=== PATIENT | female | born 1990 | race Caucasian/White ===

== ENCOUNTER → 2016-12-15 | Outpatient (CLI) | payer OTHER ==
--- NOTE | 2016-12-15 19:45 | US ---
EXAMINATION TYPE: US OB >= 14 wk fetus DATE OF EXAM: 12/15/2016 4:47 PM COMPARISON: US on PACS CLINICAL HISTORY: O36.63X0 Large for Dates TECHNIQUE: Transabdominal (TA) GESTATIONAL AGE / DATING Physician Established: (35 weeks/5 days) EDC: 01/14/2017 Dates by LMP: (35 weeks/5 days) EDC: 01/14/2017 Dates by First Scan: not here Dates by Current Scan: (36 weeks/2 days) EDC: 01/10/2017 SURVEY IUP: Single PLACENTA: Fundal Posterior PREVIA: No Previa SHAYY: 13.0 cm Normal CERVICAL LENGTH (transabdominal: norm > 3.0cm): 4.0 cm BIOMETRY PRESENTATION: Vertex LIE: Longitudinal BPD: 9.0m 36weeks / 3 days HC: 32.2 36weeks / 3 days AC: 31.8 35weeks / 5 days FL: 7.1m 36weeks / 2 days ESTIMATED WEIGHT IN GRAMS: 2836ams ESTIMATED WEIGHT IN LBS/OZS: 6 lbs. 4 oz. WEIGHT PERCENTAGE BASED ON ESTABLISHED DATES: 59.7% HC/AC: 1.01 normal FL/AC: 22.28 normal HEART RATE: 129pm RHYTHM: Normal Findings: Viable IUP,36 weeks/2 days, EDC: 01/10/2017; [id number]; Sagittal and Transverse Spine, 4 chamber heart also imaged as recommended by prior US radiologist. Du e to age of fetus the extended limbs could not be imaged as > US screen size. anatomy assessment limited due to advanced gestational age. IMPRESSION: Viable 36 weeks 2 days with an EDC of 01/10/2017. Limited anatomy assessment due to advanced gestational age.
== END | disposition home or self-care (01) ==
LOC: RADUSWWP 16:03
PROVIDERS: ATTEND Obstetrics & Gynecology
DX: O36.63X0 Maternal care for excessive fetal growth, third trimester, not applicable or unspecified (principal); Z3A.36 36 weeks gestation of pregnancy
CPT/HCPCS: 76805

== ENCOUNTER 2017-01-11 01:08 | Inpatient (IN) | payer OTHER ==
[2017-01-11] MEDS ORDERED: METHYLERGONOVINE 0.2 MG/ML 1 ML AMP IM PRN (02:50)
[2017-01-11] MEDS ORDERED: OXYTOCIN 10 UNIT/ML 1 ML VIAL IM PRN (02:50)
[2017-01-11] MEDS ORDERED: TERBUTALINE 1 MG/ML VIAL SQ PRN (02:50)
[2017-01-11] MEDS ORDERED: CARBOPROST TROMETHAMINE 250 MCG/ML 1 ML AMP IM PRN (02:50)
[2017-01-11] MEDS ORDERED: LIDOCAINE 1% (PF) 10 MG/ML (30 ML SDV) SQ PRN (02:50)
[2017-01-11] MEDS ORDERED: LACTATED RINGERS 1,000 ML IV SCH (03:00)
[2017-01-11 03:01] VITALS: BMI 30.9
[2017-01-11 03:03] LABS: Basophils # (A) 0.1 k/uL (0-0.2); Basophils % (A) 1 %; CH 23.9; CHCM 31.5; Eosinophils # (A) 0.2 k/uL (0-0.7); Eosinophils % (A) 1 %; HCT 33.1 % (34.0-46.0); HDW 3.87; HGB 10.5 gm/dL (11.4-16.0); Hypochromasia Moderate; Luc % (Auto) 2; Lymphocytes % (A) 16 %; MCH 24.2 pg (25.0-35.0); MCHC 31.8 g/dL (31.0-37.0); MCV 76.1 fL (80.0-100.0); Mean Platelet Volume 8.8; Microcytosis Slight; Monocytes # (A) 0.6 k/uL (0-1.0); Monocytes % (A) 5 %; Neutrophils # (A) 9.5 k/uL (1.3-7.7); Neutrophils % (A) 75 %; Poikilocytosis Slight; RBC 4.34 m/uL (3.80-5.40); RDW 15.8 % (11.5-15.5); WBC 12.6 k/uL (3.8-10.6); WBC (Perox) 13.24
[2017-01-11] MEDS ORDERED: BUTORPHANOL 1 MG/ML 1 ML VIAL IV PRN (05:13)
--- NOTE | 2017-01-11 06:04 | P.HPOB ---
History of Present Illness H&P Date: 01/11/17 Chief Complaint: Contractions. The patient is a pleasant 25-year-old 2 para 1 female estimated date of confinement 01/14/2017 estimated gestational age 39-4/7 weeks who presented to labor and delivery last evening with complaints of contractions found to be in early labor. Patient transferred her care to [place] in approximately 27 weeks. Her is in [facility] and she moved back to [facility] due to family. Patient's care previous to her see [place] appeared to be uncomplicated. She's had normal anatomy ultrasounds. She has a history of a macrosomic infant without sequela I however this infant appears to be normal size. Review of Systems Constitutional: Denies chills, Denies fever Ears, nose, mouth and throat: Denies headache, Denies sore throat Cardiovascular: Denies chest pain, Denies shortness of breath Respiratory: Denies cough Gastrointestinal: Reports heartburn Genitourinary: Reports Menstruation: Reports amenorrhea Musculoskeletal: Denies myalgias Integumentary: Denies pruritus, Denies rash Neurological: Denies numbness, Denies weakness Psychiatric: Denies anxiety, Denies depression Endocrine: Denies fatigue, Denies weight change Past Medical History Past Medical History: No Reported History History of Any Multi-Drug Resistant Organisms: None Reported Additional Past Surgical History / Comment(s): wisdom teeth 2012 Past Anesthesia/Blood Transfusion Reactions: No Reported Reaction Past Psychological History: No Psychological Hx Reported Smoking Status: Never smoker Past Alcohol Use History: None Reported Past Drug Use History: None Reported - Past Family History Father Family Medical History: No Reported History Mother Family Medical History: No Reported History Medications and Allergies Home Medications Medication Instructions Recorded Confirmed Type No Known Home Medications [No 01/11/17 01/11/17 History Known Home Medications] Allergies Allergy/AdvReac Type Severity Reaction Status Date / Time No Known Allergies Allergy Verified 01/11/17 01:14 Exam - Vital Signs Vital signs: Vital Signs Temp Pulse Resp BP Pulse Ox 01/11/17 01:17 130/66 01/11/17 01:10 96.1 F L 93 18 140/68 98 Intake and Output 01/10/17 01/10/17 01/11/17 14:59 22:59 06:59 Other: Weight 87.09 kg Patient Weight 01/11/17 06:59 Weight 87.09 kg - OBG Physical Exam Abdomen: bowel sounds normal, no diffuse tenderness, no bruit present, no guarding noted, no hepatomegaly, no splenomegaly, no mass Vulva: both: normal Vagina: normal moisture, no discharge Cervix: Cervix is 4-5 cm dilated vertex presentation Cervix: no lesion, no discharge Uterus: enlarged (Fundal height is consistent with a term .) Adnexa: both: normal Anus/Rectum: no rectal mass, no hemorrhoids, heme negative Results blood work shows she is oh positive, rubella immune, RPR nonreactive, hepatitis B-, HIV nonreactive, Glucola was 129, ultrasounds have been normal. B strep was negative. Result Diagrams: 01/11/17 02:50 Abnormal Lab Results - Last 24 Hours (Table) 01/11/17 Range/Units 02:50 WBC 12.6 H (3.8-10.6) k/uL Hgb 10.5 L (11.4-16.0) gm/dL Hct 33.1 L (34.0-46.0) % MCV 76.1 L (80.0-100.0) fL MCH 24.2 L (25.0-35.0) pg RDW 15.8 H (11.5-15.5) % Neutrophils # 9.5 H (1.3-7.7) k/uL Assessment and Plan (1) Third trimester Narrative/Plan: This is a pleasant 25-year-old 2 para 1 female 39-4/7 weeks' gestation in early active labor. Plan is anticipate normal spontaneous vaginal delivery. Status: Acute (2) Normal labor Status: Acute
[2017-01-11] MEDS ORDERED: HYDROCORTISONE 2.5% RECTAL CREAM 30 GM TUBE RECTAL PRN (07:13)
[2017-01-11] MEDS ORDERED: diphenhydrAMINE 50 MG/ML 1 ML VIAL IVP PRN (07:13)
[2017-01-11] MEDS ORDERED: BISACODYL 10 MG SUPP RECTAL PRN (07:13)
[2017-01-11] MEDS ORDERED: LANOLIN CREAM 5 GM TUBE TOPICAL PRN (07:13)
[2017-01-11] MEDS ORDERED: ACETAMINOPHEN TAB 325 MG TAB PO PRN (07:13)
[2017-01-11] MEDS ORDERED: diphenhydrAMINE 25 MG CAP PO PRN (07:13)
[2017-01-11] MEDS ORDERED: IBUPROFEN 600 MG TAB PO PRN (07:13)
[2017-01-11] MEDS ORDERED: WITCH HAZEL 1 EACH MED..PAD TOPICAL PRN (07:13)
[2017-01-11] MEDS ORDERED: SIMETHICONE 80 MG CHEWABLE PO PRN (07:13)
[2017-01-11] MEDS ORDERED: Acetaminophen-Codeine 300-30mg TAB PO PRN ×2 (07:13)
[2017-01-11] MEDS ORDERED: ZOLPIDEM 5 MG TAB PO PRN (07:13)
[2017-01-11] MEDS ORDERED: BENZOCAINE/MENTHOL SPRAY 1 GM/SPRAY AEROSOL TOPICAL PRN (07:13)
--- NOTE | 2017-01-11 07:17 | P.PROBDLV ---
Vaginal Delivery Note - . Vaginal Delivery Note: Normal spontaneous vaginal delivery viable female infant Apgars 8 and 9 delivery time was 0648 hrs. Please see dictated H&P for intimate details of this patient's admission. Brief summary this is a pleasant 26-year-old 2 para 1 female 39-4/7 weeks gestation admitted last evening with complaints of contractions found to be 4 cm in active labor. Patient does receive 1 dose of intrapartum Stadol in labor progresses quickly. Patient gets to complete and at this time has artificial rupture membranes for clear fluid. As to pushes she pushes the head to the perineum. The posterior perineum was infiltrated with 1% lidocaine and a midline episiotomy is made. I then have controlled delivery of the 's head over the intact perineum. Mouth and nares are bulb suctioned. There is no evidence of a nuchal cord. With gentle downward traction we then have delivery the anterior and posterior shoulder and rest this infant's body. This is a vigorous viable female Apgars are 8 and 9 delivery time was 0648 hours. After delivery of the the umbilical cord is doubly clamped and cut and appears to be trivascular. The placenta is then spontaneously delivered intact. Estimated blood loss is 150 mL. Inspection of the perineum shows a second-degree laceration which is repaired with 3-0 Vicryl in the usual fashion. Excellent reapproximation is noted. Infant and mother are stable delivery room. All counts are correct 3. There are no complications.
[2017-01-11] MEDS: OXYTOCIN 30 UNITS/500 ML NS 30 UNIT in SALINE 1 500ML.BAG IV SCH ×2 (07:22→19:24)
[2017-01-11] MEDS: SENNOSIDES-DOCUSATE SODIUM 1 EACH TAB PO SCH ×2 (10:06→19:58)
--- NOTE | 2017-01-12 05:36 | P.PNOBGVD ---
Subjective - Subjective Patient reports: Reports appetite normal, Reports voiding normally, Reports pain well controlled, Reports ambulating normally : doing well Objective - Latest Vital Signs Latest vital signs: Vital Signs Temp Pulse Resp BP Pulse Ox 01/12/17 00:00 98.3 F 89 17 112/61 98 01/11/17 16:00 98.0 F 74 16 121/72 98 01/11/17 12:00 98.3 F 70 17 128/73 01/11/17 09:10 98.8 F 86 16 122/64 01/11/17 08:40 85 16 114/68 01/11/17 08:10 85 16 125/64 01/11/17 07:55 91 16 124/64 01/11/17 07:40 101 H 16 118/62 01/11/17 07:25 96 16 131/60 100 01/11/17 07:10 97.7 F 58 L 18 123/58 98 Intake and Output 01/11/17 01/11/17 01/12/17 14:59 22:59 06:59 Other: # Voids 2 - Exam Lungs: bilateral: normal Chest: Normal S1, Normal S2 Extremities: Present: normal Abdomen: Present: normal appearance, soft Uterus: Present: normal, firm Assessment and Plan (1) Third trimester Narrative/Plan: day 1. Patient is resting without complaints. Vital signs are stable she's afebrile. She wishes to go home. Impression is a normal course patient is stable for discharge home. Plan will be continue routine care discharge home later today. Current Visit: Yes Status: Acute Code(s): Z33.1 - STATE, INCIDENTAL SNOMED Code(s): 97946962 (2) Normal labor Current Visit: Yes Status: Acute Code(s): O80 - ENCOUNTER FOR FULL-TERM UNCOMPLICATED DELIVERY; Z37.9 - OUTCOME OF DELIVERY, UNSPECIFIED SNOMED Code(s ): 45398694
--- NOTE | 2017-01-12 05:39 | P.DS ---
Providers Date of admission: 01/11/17 02:30 Expected date of discharge: 01/12/17 Attending physician: Jw Ann Primary care physician: Jw Ann - Discharge Diagnosis(es) (1) Third trimester Current Visit: Yes Status: Acute (2) Normal labor Current Visit: Yes Status: Acute Hospital Course: Please see dictated H&P for intimate details of this patient's admission. Brief summary this is a pleasant 26-year-old 2 para 1 female 39-4/7 weeks gestation who is admitted to labor and delivery in active labor. Patient quickly goes on have a vaginal delivery viable female infant. Please see dictated delivery note. day #1 patient without complaints she wishes to go home. Patient's felt be stable for discharge home follow up with me in 6 weeks. Procedures: Normal spontaneous vaginal delivery. Patient Condition at Discharge: Good Plan - Discharge Summary New Discharge Prescriptions: Acetaminophen-Codeine 300-30mg [Tylenol w/codeine #3] 1 - 2 each PO Q4HR PRN # 30 tab PRN Reason: Mild Pain exceeding Tylenol Ibuprofen [Motrin] 600 mg PO Q6HR PRN #40 tab PRN Reason: Mild Pain Or Fever >= 100.5 Discharge Medication List Acetaminophen-Codeine 300-30mg [Tylenol w/codeine #3] 1 - 2 each PO Q4HR PRN # 30 tab 01/12/17 [Rx] Ibuprofen [Motrin] 600 mg PO Q6HR PRN #40 tab 01/12/17 [Rx] Follow up Appointment(s)/Referral(s): Jw Ann MD [Primary Care Provider] - 02/15/17 9:30 am Patient Instructions/Handouts: Vaginal Delivery (DC) Activity/Diet/Wound Care/Special Instructions: No intercourse or anything per vagina for 6 weeks. Please call if any fever, chills, excessive vaginal bleeding, and/or abdominal pain. Discharge Disposition: HOME SELF-CARE
[2017-01-12] MEDS: SENNOSIDES-DOCUSATE SODIUM 1 EACH TAB PO SCH (08:01)
[2017-01-12 10:39] VITALS: BP 116/70; PULSE 73; RESP 16; TEMP 98.1
== END 2017-01-12 11:30 | disposition home or self-care (01) | DRG 775 ==
LOC: FBPOP 01:08 → 4FBP 02:30
PROVIDERS: ADMIT Obstetrics & Gynecology; ATTEND Obstetrics & Gynecology
PROC: 10E0XZZ Delivery of Products of Conception, External Approach (ICD-10-PCS; principal; 2017-01-11)
PROC: 0KQM0ZZ Repair Perineum Muscle, Open Approach (ICD-10-PCS; 2017-01-11)
PROC: 0W8NXZZ Division of Female Perineum, External Approach (ICD-10-PCS; 2017-01-11)
DX: O70.1 Second degree perineal laceration during delivery (principal); Z37.0 Single live birth; Z3A.39 39 weeks gestation of pregnancy
CPT/HCPCS: 59025; 85025; 88307; 99213